=== PATIENT | female | born 1995 | race African-American/Black ===

== ENCOUNTER 2018-06-14 16:37 | Emergency (ER) | payer MEDICAID ==
[~2018-06-14] VITALS: Ht 180.3 cm; Wt 68.0 kg
[2018-06-14] MEDS ORDERED: NKM (16:44)
--- NOTE | 2018-06-14 16:48 | NUR ---
ED Nurse Note: Pt came into the Er w/ complaints of first digit of the left foot pain since last night and pinky finger of the right hand since one month ago. No redness or swelling noted. A + O x4. Ambulatory. Skin warm to touch. Rating the toe pain a 6/10 and the right pinky a 3/10. Non radiating.
[2018-06-14 16:55] VITALS: BP 100/55
--- NOTE | 2018-06-14 17:08 | NUR ---
ED Nurse Note: Urine has been collected and sent to lab. Awaiting results.
--- NOTE | 2018-06-14 17:34 | NUR ---
ED Nurse Note: Xray at the bedside.
[2018-06-14] MEDS ORDERED: ROBAXIN-750750 MG PO (17:49)
[2018-06-14] MEDS ORDERED: IBUPROFEN600 MG ORAL (17:59)
[2018-06-14 18:03] VITALS: BP 110/75
--- NOTE | 2018-06-14 18:04 | NUR ---
ED Nurse Note: Discharge instructions given to pt. Answered all questions. Verbalized understanding. No acute distress noted. ID band removed. Left ER w/ all belongings and w/ a steady gait.
--- NOTE | 2018-06-14 19:11 | Emergency Room Report ---
History of Present Illness General Chief Complaint: Pain Source: Patient (LUIS ALBERTO MARTINEZ) Present Illness HPI The patient is a 23-year-old female presenting for pain of her right hand and left foot. She states that a door closed onto her right hand approximately 1 month prior. She was not evaluated at that time. Pain has continued and is now a 5 out of 10 dull ache. Worse with touch and movement. Pain does not radiate. She also noticed pain of her left big toe which began 2 days prior. She states that she felt this as she was walking. She denies any injury. Pain is a 3 out of 10 dull ache and worse with walking. She denies previous gout. She denies any other symptoms (LUIS ALBERTO MARTINEZ) Allergies: Coded Allergies: No Known Allergies (Unverified , 06/14/18) Patient History Past Medical History: see triage record Pertinent Family History: none Last Menstrual Period: 2 WEEKS AGO Now: No Reviewed Nursing Documentation: PMH: Agreed; PSxH: Agreed (LUIS ALBERTO MARTINEZ) Nursing Documentation-PMH Past Medical History: No Stated History (LUIS ALBERTO MARTINEZ) Review of Systems All Other Systems: negative except mentioned in HPI (LUIS ALBERTO MARTINEZ) Physical Exam Vital Signs Date Time Temp Pulse Resp B/P (MAP) Pulse Ox O2 Delivery O2 Flow Rate FiO2 06/14/18 16:40 99.0 80 19 106/60 96 Room Air Sp02 EP Interpretation: reviewed, normal General Appearance: no apparent distress, alert, GCS 15, non-toxic Head: normocephalic, atraumatic Musculoskeletal: normal inspection, gait/station normal, normal range of motion , tender - TTP over the R 4th and 5th MC. TTP over the L 1st toe IPJ Neurologic: alert, oriented x3, responsive, motor strength/tone normal, sensory intact, speech normal Psychiatric: judgement/insight normal, memory normal, mood/affect normal, no suicidal/homicidal ideation Skin: normal color, no rash, warm/dry, well hydrated (LUIS ALBERTO MARTINEZ) Medical Decision Making PA Attestation Dr. Rosen is my supervising physician. Patient management was discussed with my supervising physician (TERZIAN,LUIS ALBERTO P.A.) Diagnostic Impression: Primary Impression: Contusion, hand Qualified Codes: S60.221A - Contusion of right hand, initial encounter Additional Impression: Sprain of great toe of left foot Qualified Codes: S93.502A - Unspecified sprain of left great toe, initial encounter ER Course The patient is a 23-year-old female presenting for pain of her right hand and left foot. Ddx considered include but not limited to sprain/strain, fracture, contusion, gout PE: Afebrile. NAD Right hand: No obvious deformity. No edema. Full active range of motion is intact. Sensation intact. There is tenderness to palpation over the fourth and fifth metacarpal. Left foot has tenderness to palpation over the first IP joint. No deformity. Full active range of motion intact. No edema. No erythema X-ray of the right hand and left foot are both unremarkable The patient will be treated with Motrin. Rice instructions given. ER precautions given Laboratory Tests Test 06/14/18 17:03 Urine HCG, Qualitative Negative (NEGATIVE) Lab Results Impression Neg preg (LUIS ALBERTO MARTINEZ P.A.) Other X-Ray Diagnostic Results Other X-Ray Diagnostic Results #1: X-Ray ordered: R hand # of Views/Limited Vs Complete: 3 View, Complete Indication: Pain EP Interpretation: Yes PA Xray: Interpretation reviewed, by supervising MD, and agrees with findings. Interpretation: no dislocation, no soft tissue swelling, no fractures Impression: No acute disease Electronically Signed by: Luis Alberto Martinez PA-C Other X-Ray Diagnostic Results #2: X-Ray ordered: L foot # of Views/Limited Vs Complete: 3 View, Complete Indication: Pain EP Interpretation: Yes PA Xray: Interpretation reviewed, by supervising MD, and agrees with findings. Interpretation: no dislocation, no soft tissue swelling, no fractures Impression: No acute disease Electronically Signed by: Luis Alberto Martinez PA-C (LUIS ALBERTO MARTINEZ P.A.) Other X-Ray Diagnostic Results #1: Electronically Signed by: P A documentation of Xray reviewed by me and is accurate, David Rosen MD Other X-Ray Diagnostic Results #2: Electronically Signed by: P A documentation of Xray reviewed by me and is accurate, David Rosen MD (David Rosen MD) Last Vital Signs Date Time Temp Pulse Resp B/P (MAP) Pulse Ox O2 Delivery O2 Flow Rate FiO2 06/14/18 18:03 97.5 90 20 110/75 98 Room Air Status: improved (LUIS ALBERTO MARTINEZ) Disposition: HOME, SELF-CARE Condition: Improved Scripts Ibuprofen* (MOTRIN*) 600 Mg Tablet 600 MG ORAL Q8H PRN for For Pain, #30 TAB 0 Refills Prov: LUIS ALBERTO MARTINEZ 06/14/18 Patient Instructions: MARICARMEN Silveira for Routine Care of Injuries Additional Instructions: I discussed my findings with the patient. All questions and concerns have been answered. Treatment and medication compliance have been addressed. I advised the patient that they need to follow up with PMD in 3-5 days. Return to ED if pain remains or worsens, numbness or tingling occurs, new rash is noticed, fever is noticed, or if needed for any reason. Patient verbalized understanding of discharge instructions. LUIS ALBERTO MARTINEZ Jun 14, 2018 19:11 David Rosen MD Jun 15, 2018 02:00
--- NOTE | 2018-06-15 12:19 | Diagnostic Imaging Report ---
Indication: Foot pain Technique: XRAY Foot Complete L Comparison: None Findings: Bone mineralization within normal limits. There is no evidence of acute fracture. Anatomic alignment and joint spaces are maintained. No evidence of ankle joint effusion. No radiopaque foreign body. Impression: No acute fracture or dislocation.
--- NOTE | 2018-06-15 12:20 | Diagnostic Imaging Report ---
Indication: Hand pain Technique: XRAY Hand Complete R Comparison: None Findings: Bony mineralization within normal limits. There is no evidence of acute fracture. Anatomic alignment and joint spaces are maintained. No radiopaque foreign body. Impression: No acute fracture or dislocation.
== END 2018-06-14 18:04 | disposition home or self-care (01) ==
LOC: EMR 17:01
DX: S60.221A Contusion of right hand, initial encounter (principal); S93.502A Unspecified sprain of left great toe, initial encounter; W23.0XXA Caught, crushed, jammed, or pinched between moving objects, initial encounter; Y92.89 Other specified places as the place of occurrence of the external cause
CPT/HCPCS: 81025; 99284

== ENCOUNTER 2018-07-06 06:07 | Emergency (ER) | payer MEDICAID ==
[~2018-07-06] VITALS: Ht 180.3 cm; Wt 68.0 kg
[~2018-07-06 06:07] MED LIST: IBUPROFEN600 MG ORAL; NKM; ROBAXIN-750750 MG PO
[2018-07-06 06:14] VITALS: BP 123/69
[2018-07-06] MEDS ORDERED: NKM (06:14)
--- NOTE | 2018-07-06 06:17 | NUR ---
ED Nurse Note: Patient walked into ED c/o of an abscess on right pelvic area that started 07/05/18
--- NOTE | 2018-07-06 06:29 | Emergency Room Report ---
History of Present Illness General Chief Complaint: Skin Rash/Abscess Source: Patient Present Illness HPI Patient is a 23-year-old female presented after increased rash to her right groin area. Patient was noted to have increased tenderness as well as some swelling. She denies any fever. She denies being . Patient states this is recurred multiple times during her periods. Patient reports of increased sharp pain. Allergies: Coded Allergies: No Known Allergies (Unverified , 06/14/18) Patient History Past Medical History: see triage record Last Menstrual Period: 07/05/18 Now: No : 0 Para: 0 Reviewed Nursing Documentation: PMH: Agreed; PSxH: Agreed Nursing Documentation-PMH Past Medical History: No Stated History Review of Systems All Other Systems: negative except mentioned in HPI Physical Exam Vital Signs Date Time Temp Pulse Resp B/P (MAP) Pulse Ox O2 Delivery O2 Flow Rate FiO2 07/06/18 06:11 97.9 115 18 123/69 96 Room Air Sp02 EP Interpretation: reviewed, normal General Appearance: normal inspection, well appearing, no apparent distress, alert, GCS 15, non-toxic Head: atraumatic ENT: normal ENT inspection, hearing grossly normal, normal voice Neck: normal inspection, full range of motion, supple, no bony tend Respiratory: normal inspection, lungs clear, normal breath sounds, no respiratory distress, no retraction, no wheezing Cardiovascular #1: regular rate, rhythm, no edema Gastrointestinal: normal inspection, normal bowel sounds, non tender, soft, no guarding, no hernia Genitourinary: no CVA tenderness, other - right inguinal lymphadenopathy Musculoskeletal: normal inspection, back normal, normal range of motion Neurologic: normal inspection, alert, oriented x3, responsive, 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 Differential diagnosis include was not limited to necrotizing fasciitis, abscess, hidradenitis suppurativa, bubo, among others. Patient has a benign exam and does not appear to require any further imaging or laboratory testing at this time. Patient is noted to have some tenderness inguinal lymphadenopathy. There is no evident abscess noted. Patient was given intramuscular Rocephin as well as prescription for oral antibiotics. She was advised to have outpatient testing for sexually transmitted infections as well as Pap smear. Patient advised to return if worse. She was given a note for work. Labs Test 07/06/18 03:39 Urine HCG, Qualitative Negative (NEGATIVE) Last Vital Signs Date Time Temp Pulse Resp B/P (MAP) Pulse Ox O2 Delivery O2 Flow Rate FiO2 07/06/18 06:14 97.9 74 18 123/69 96 Room Air Status: improved Condition: Stable Scripts Ibuprofen* (MOTRIN*) 600 Mg Tablet 600 MG ORAL Q8H PRN for For Pain, #30 TAB 0 Refills Prov: Miguel Graves MD 07/06/18 Doxycycline Monohydrate* (DOXYCYCLINE MONOHYDRATE*) 100 Mg Capsule 100 MG ORAL Q12H, #14 CAP 0 Refills Prov: Miguel Graves MD 07/06/18 Miguel Graves MD Jul 06, 2018 06:29
[2018-07-06] MEDS ORDERED: DOXYCYCLINE MO100 MG ORAL (06:34)
[2018-07-06] MEDS ORDERED: IBUPROFEN600 MG ORAL (06:34)
[2018-07-06] MEDS ORDERED: Lidocaine 1% MPF 10mg/ml 5ml INJ ONE (06:45)
[2018-07-06 06:52] VITALS: BP 120/71
[2018-07-06 07:05] VITALS: BP 120/71
--- NOTE | 2018-07-06 07:06 | NUR ---
ED Nurse Note: PT is Dc per ERMD order. pt is stable for DC. pt is alert and oriented times 4. pt left with all DC notes and prescriptions and belongings. pt is able to teach back DC notes. pt is instructed to follow up with primary MD as soon as possible. pt vital signs is stable. pt status, condition and vital signs reported to ERMD prior to DC. pt ID band removed.
== END 2018-07-06 07:09 | disposition home or self-care (01) ==
LOC: EMR 06:28
DX: R59.0 Localized enlarged lymph nodes (principal)
CPT/HCPCS: 81025; 96372; 96374; 99284; J0696

== ENCOUNTER 2018-08-15 14:12 | Emergency (ER) | payer MEDICAID ==
[~2018-08-15] VITALS: Ht 177.8 cm; Wt 68.0 kg
[~2018-08-15 14:12] MED LIST changes: +DOXYCYCLINE MO100 MG ORAL
[2018-08-15 14:32] VITALS: BP 109/65
--- NOTE | 2018-08-15 14:34 | NUR ---
ED Nurse Note: patient walked in by her self from home, complaining of smal lesion inside of her left chick. per patient she is so worry about it. AAO x4, VSS at this time, skin is dry, intact, warm to touch.
[2018-08-15 15:01] VITALS: BP 135/65
--- NOTE | 2018-08-15 15:02 | NUR ---
ER DISCHARGE NOTE: Patient is cleared to be discharged per ERMD, pt is aox4, on room air, with stable vital signs. pt was given dc and prescription instructions, pt was able to verbalize understanding, pt id band removed. pt is able to ambulate with steady gait. pt took all belongings.
--- NOTE | 2018-08-15 20:26 | Emergency Room Report ---
History of Present Illness General Chief Complaint: General Complaint Source: Patient Present Illness HPI Patient is a 23-year-old female presenting for a lesion she noticed in her mouth 3 days prior. She states that she noticed a dark region towards the back of her mouth. She denies any symptoms including pain, bleeding, fever, chills, weight loss, night sweats, dysphagia, odynophagia Pt denies tobacco Hx Allergies: Coded Allergies: No Known Allergies (Unverified , 06/14/18) Patient History Past Medical History: see triage record Pertinent Family History: none Last Menstrual Period: 07/25/2018 Now: No : 0 Para: 0 Reviewed Nursing Documentation: PMH: Agreed; PSxH: Agreed Nursing Documentation-PMH Past Medical History: No Stated History Review of Systems All Other Systems: negative except mentioned in HPI Physical Exam Vital Signs Date Time Temp Pulse Resp B/P (MAP) Pulse Ox O2 Delivery O2 Flow Rate FiO2 08/15/18 14:20 98.4 95 18 109/65 100 Room Air Sp02 EP Interpretation: reviewed, normal General Appearance: no apparent distress, alert, GCS 15, non-toxic Head: normocephalic, atraumatic ENT: hearing grossly normal, normal pharynx, no angioedema, normal voice, uvula midline, moist mucus membranes, other - Posterior to L molars on buccal mucosa is a 1.5cm in diameter hyperpigmented macular lesion Neck: full range of motion, supple/symm/no masses Musculoskeletal: back normal, gait/station normal, normal range of motion, non- tender Neurologic: alert, oriented x3, responsive, motor strength/tone normal, sensory intact, speech normal Psychiatric: judgement/insight normal, memory normal, mood/affect normal, no suicidal/homicidal ideation Skin: normal color, no rash, warm/dry, well hydrated Lymphatic: no adenopathy Medical Decision Making PA Attestation Dr. Crow is my supervising physician. Patient management was discussed with my supervising physician Diagnostic Impression: Primary Impression: Oral mucosal lesion ER Course Patient is a 23-year-old female presenting for a lesion she noticed in her mouth 3 days prior. Differential diagnosis considered but not limited to: Malignancy, dental infection, among others PE: Afebrile. NAD Posterior to L molars on buccal mucosa is a 1.5cm in diameter hyperpigmented macular lesion. Non tender. Irregular in shape. No bleeding. No edema. The patient was told she needs to follow-up with ENT and/or primary doctor as soon as possible as this could be malignancy. She is given follow-up information. She understands. ER precautions given Last Vital Signs Date Time Temp Pulse Resp B/P (MAP) Pulse Ox O2 Delivery O2 Flow Rate FiO2 08/15/18 15:01 98.2 74 16 135/65 100 Room Air Status: improved Disposition: HOME, SELF-CARE Condition: Improved Referrals: NON PHYSICIAN (PCP) Karlos Alvarado MD [facility](age 2-12) - Orthodontic Clinic - Hours: Fri,Fri,, 8:15am and 1pm (new patient screening), Tu. 1pm. Emergency clinic Friday - Friday 8:30am and 1pm, Tues. 1pm. *Call to check if clinic is open; No appointment necessary for the first visit ( new patient screening), Arrive 15-30 minutes early as it is first come, first serve. Additional Instructions: Please follow up with ENT and Dentistry as soon as possible for further evaluation and treatment. It is possible that the oral lesion is a type of cancer but needs further testing. Information has been provided for an ENT doctor and dentist. DEMARIO MARTINEZ Aug 15, 2018 20:26
== END 2018-08-15 15:01 | disposition home or self-care (01) ==
LOC: EMR 14:35
DX: K13.70 Unspecified lesions of oral mucosa (principal)
CPT/HCPCS: 99281

== ENCOUNTER 2018-10-27 13:07 | Emergency (ER) | payer MEDICAID ==
[~2018-10-27] VITALS: Ht 180.3 cm; Wt 72.6 kg
[2018-10-27 13:11] VITALS: BP 117/69
--- NOTE | 2018-10-27 13:23 | Emergency Room Report ---
History of Present Illness General Chief Complaint: Upper Respiratory Illness Source: Patient Present Illness HPI 23-year-old female with no significant past medical history here complaining of 1 day of sore throat and body ache. Patient reports that her was diagnosed with tonsillitis and given antibiotics. Patient is rating the pain 3 out of 10 with swallowing, and edema and her neck, denying cough and congestion. Patient has been taking ibuprofen for pain with minimal relief. Denies abdominal pain, nausea vomiting, shortness of breath, wheezing, chest pain palpitation. Denies recent travel. Allergies: Coded Allergies: No Known Allergies (Unverified , 06/14/18) Patient History Past Medical History: see triage record Past Surgical History: unable to obtain Pertinent Family History: none Last Menstrual Period: 10/24/18 Now: No Immunizations: UTD Reviewed Nursing Documentation: PMH: Agreed; PSxH: Agreed Nursing Documentation-PMH Past Medical History: No Stated History Review of Systems All Other Systems: negative except mentioned in HPI Physical Exam Vital Signs Date Time Temp Pulse Resp B/P (MAP) Pulse Ox O2 Delivery O2 Flow Rate FiO2 10/27/18 13:10 99.0 78 18 115/66 (82) 99 Room Air Sp02 EP Interpretation: reviewed, normal General Appearance: normal inspection, well appearing Head: normocephalic, atraumatic Eyes: bilateral eye normal inspection, bilateral eye PERRL ENT: no angioedema, TMs + canals normal, uvula midline, moist mucus membranes, pharyngeal erythema Neck: full range of motion, supple, other - Anterior cervical Respiratory: normal inspection, chest non-tender, lungs clear, normal breath sounds, no respiratory distress, no wheezing Cardiovascular #1: normal inspection, normal peripheral pulses, regular rate, rhythm, no murmur, normal capillary refill Gastrointestinal: normal inspection, soft Genitourinary: no CVA tenderness Musculoskeletal: normal inspection, back normal Neurologic: normal inspection, alert, oriented x3 Psychiatric: normal inspection, judgement/insight normal Skin: normal inspection, normal color, no rash, warm/dry Lymphatic: adenopathy - Anterior cervical Medical Decision Making PA Attestation All my diagnosis and treatment plans were reviewed ad discussed with my supervising physician Dr. Fernandez Diagnostic Impression: Primary Impression: Acute tonsillitis ER Course 23-year-old female with no significant past medical history here complaining of 1 day of sore throat and body ache. Patient reports that her was diagnosed with tonsillitis and given antibiotics. Patient is rating the pain 3 out of 10 with swallowing, and edema and her neck, denying cough and congestion. Patient has been taking ibuprofen for pain with minimal relief. Denies abdominal pain, nausea vomiting, shortness of breath, wheezing, chest pain palpitation. Denies recent travel. Ddx considered but are not limited to: strep pharyngitis, URI, tonsilitis, peritonsillar absacess, influneza Vital signs: are WNL, pt. is afebrile H&PE are most consistent with: tonsillitis most likely bacterial due to exposure ORDERS: amOxacillin, ibuprofen ED INTERVENTIONS: None required at this time. DISCHARGE: At this time pt. is stable for d/c to home. Will provide printed patient care instructions, and any necessary prescriptions. Care plan and follow up instructions have been discussed with the patient prior to discharge. follow up with a primary care provider if symptoms continue for more assessment and possible referral to ENT Last Vital Signs Date Time Temp Pulse Resp B/P (MAP) Pulse Ox O2 Delivery O2 Flow Rate FiO2 10/27/18 13:10 99.0 78 18 115/66 (82) 99 Room Air Disposition: HOME, SELF-CARE Condition: Stable Scripts Ibuprofen* (MOTRIN*) 600 Mg Tablet 600 MG ORAL Q12HR PRN for For Pain, #15 TAB 0 Refills Prov: Tyler Young 10/27/18 Amoxicillin* (AMOXIL*) 500 Mg Capsule 500 MG ORAL EVERY 12 HOURS for 10 Days, #20 CAP Prov: Tyler Young 10/27/18 Patient Instructions: Tonsillitis, [id number] Additional Instructions: See primary care provider for follow-up if continues to be symptomatic Tyler Young Oct 27, 2018 13:23
[2018-10-27] MEDS ORDERED: AMOXICILLIN500 MG ORAL (13:24)
[2018-10-27] MEDS ORDERED: IBUPROFEN600 MG ORAL (13:25)
[2018-10-27 13:26] VITALS: BP 117/69
== END 2018-10-27 13:26 | disposition home or self-care (01) ==
LOC: EMR 13:23
DX: J03.90 Acute tonsillitis, unspecified (principal)
CPT/HCPCS: 99282

== ENCOUNTER 2019-03-11 18:57 | Emergency (ER) | payer MEDICAID ==
[~2019-03-11] VITALS: Ht 180.3 cm; Wt 70.3 kg
[~2019-03-11 18:57] MED LIST changes: +AMOXICILLIN500 MG ORAL
--- NOTE | 2019-03-11 19:39 | NUR ---
ED Nurse Note: PAtient presents as a walk-in with complaints of lower right back pain x 1 day and diarrhea x 3-4 days. Patient has pain on 8/10 scale and is awaiting urge to provide urine sample. will continue to monitor.
[2019-03-11 19:40] VITALS: BP 105/60
[2019-03-11 20:33] LABS: APPEARANCE,URINE CLEAR; BILIRUBIN, URINE NEGATIVE (NEGATIVE); COLOR,URINE PALE YELLOW; GLUCOSE, URINE (UA) NEGATIVE (NEGATIVE); KETONES,URINE NEGATIVE (NEGATIVE); LEUKOCYTE ESTERASE ,URINE 1+ (NEGATIVE); NITRITE,URINE NEGATIVE (NEGATIVE); PH,URINE 8 (4.5-8.0); PROTEIN,URINE 1+ (NEGATIVE); UROBILINOGEN,URINE NORMAL MG/DL (0.0-1.0)
--- NOTE | 2019-03-11 20:49 | Emergency Room Report ---
History of Present Illness General Chief Complaint: Lower Back Pain or Injury Source: Patient Present Illness HPI 24-year-old female with no significant past history is complaining of 2 days of right-sided low back pain pointing at the mid to right lateral however denies pain radiation to the suprapubic area. Denies urinary frequency, hematuria, painful urination. Denies fever and chills, fall or injury, lifting heavy objects. Reports that it started after she was sitting for several hours. Has full range of motion, denying saddle paresthesia, tingling numbness, urinary or bowel incontinence. Has not taken medication for symptom relief. Patient is not sexually active and reports that her last menstrual period was 3 weeks ago and regular. Allergies: Coded Allergies: No Known Allergies (Unverified , 06/14/18) Patient History Past Medical History: see triage record Past Surgical History: none Pertinent Family History: none Last Menstrual Period: 02/24/19 Now: No Immunizations: UTD Reviewed Nursing Documentation: PMH: Agreed; PSxH: Agreed Nursing Documentation-PMH Past Medical History: No Stated History Review of Systems All Other Systems: negative except mentioned in HPI Physical Exam Vital Signs Date Time Temp Pulse Resp B/P (MAP) Pulse Ox O2 Delivery O2 Flow Rate FiO2 03/11/19 19:15 98.4 97 22 105/60 (75) 98 Room Air Sp02 EP Interpretation: reviewed, normal General Appearance: no apparent distress, alert, GCS 15, non-toxic Head: normocephalic, atraumatic Eyes: bilateral eye normal inspection, bilateral eye PERRL ENT: hearing grossly normal, normal pharynx, no angioedema, normal voice Neck: full range of motion, supple/symm/no masses Respiratory: chest non-tender, lungs clear, normal breath sounds, no wheezing, speaking full sentences Cardiovascular #1: regular rate, rhythm, no edema, no murmur Gastrointestinal: normal bowel sounds, non tender, soft, no mass Genitourinary: normal inspection, no CVA tenderness Musculoskeletal: normal inspection, back normal, digits/nails normal, gait/ station normal, non-tender, pelvis stable Neurologic: normal inspection, alert, oriented x3, responsive Psychiatric: normal inspection, judgement/insight normal Skin: no rash Lymphatic: normal inspection Medical Decision Making PA Attestation All my diagnosis and treatment plans were reviewed ad discussed with my supervising physician Dr. Fernandez Diagnostic Impression: Primary Impression: UTI (urinary tract infection) Additional Impression: Lumbar spine strain ER Course 24-year-old female with no significant past history is complaining of 2 days of right-sided low back pain pointing at the mid to right lateral however denies pain radiation to the suprapubic area. Denies urinary frequency, hematuria, painful urination. Denies fever and chills, fall or injury, lifting heavy objects. Reports that it started after she was sitting for several hours. Has full range of motion, denying saddle paresthesia, tingling numbness, urinary or bowel incontinence. Has not taken medication for symptom relief. Patient is not sexually active and reports that her last menstrual period was 3 weeks ago and regular. Ddx considered but are not limited to: UTI, pyelonephritis, lumbar spine versus strain versus contusion Vital signs: are WNL, pt. is afebrile H&PE are most consistent with: UTI, lumbar spine strain ORDERS: UA, No lumbar x-ray needed as there was no fall or injury, Macrobid, Robaxin, lidocaine patch ED INTERVENTIONS: None required at this time. DISCHARGE: At this time pt. is stable for d/c to home. Will provide printed patient care instructions, and any necessary prescriptions. Care plan and follow up instructions have been discussed with the patient prior to discharge. Advised patient follow-up with her primary care provider if fever chills, flank pain, nausea vomiting return to emergency room at this time patient CVA tenderness and does not elicit pyelonephritis symptoms advised her to start as soon as possible for UTI symptoms. Last Vital Signs Date Time Temp Pulse Resp B/P (MAP) Pulse Ox O2 Delivery O2 Flow Rate FiO2 03/11/19 19:40 98.4 76 22 105/60 98 Room Air Disposition: HOME, SELF-CARE Condition: Stable Scripts Nitrofurantoin Monohyd/M-Cryst* (MACROBID 100 MG*) 100 Mg Capsule 100 MG ORAL EVERY 12 HOURS for 7 Days, #14 CAP Prov: Tyler Young 03/11/19 Lidocaine Patch* (Lidoderm Patch*) 1 Each Adh..patch 1 PATCH TOPIC DAILY, #7 PATCH 0 Refills Patch(es) may remain in place for up to 12 hours in any 24-hour period. Prov: Tyler Young 03/11/19 Methocarbamol* (ROBAXIN-500*) 500 Mg Tablet 500 MG ORAL TID PRN for For Pain, #15 TAB 0 Refills Prov: Tyler Young 03/11/19 Patient Instructions: Lumbosacral Strain, Urinary Tract Infection, [id number] Additional Instructions: Take medication as directed follow-up with your primary care provider if worsening symptoms return to the emergency room Tyler Yougn Mar 11, 2019 20:49
[2019-03-11] MEDS ORDERED: LIDODERM700 M1 TOPIC (20:51)
[2019-03-11] MEDS ORDERED: NITROFURANTOIN100 M2 ORAL (20:51)
[2019-03-11] MEDS ORDERED: ROBAXIN-500MG ORAL (20:51)
--- NOTE | 2019-03-11 20:59 | NUR ---
ED Nurse Note: patient cleared for discharge by ER provider, patient verbalized understanding of discharge instructions, ID band removed, patient departed with all belongings.
[2019-03-11 21:01] VITALS: BP 105/60
== END 2019-03-11 21:01 | disposition home or self-care (01) ==
LOC: EMR 21:00
DX: S39.012A Strain of muscle, fascia and tendon of lower back, initial encounter (principal); N39.0 Urinary tract infection, site not specified; X58.XXXA Exposure to other specified factors, initial encounter; Y92.9 Unspecified place or not applicable
CPT/HCPCS: 81001; 81025; 87086; 87181; Z7502; 99283

== ENCOUNTER 2019-07-23 21:29 | Emergency (ER) | payer MEDICAID ==
[~2019-07-23] VITALS: Ht 180.3 cm; Wt 68.0 kg
[~2019-07-23 21:29] MED LIST changes: +LIDODERM700 M1 TOPIC; +NITROFURANTOIN100 M2 ORAL; +ROBAXIN-500MG ORAL
--- NOTE | 2019-07-23 22:10 | NUR ---
ED Nurse Note: Patient walked in to ER c/o lower back pain x 2-3 days. AAO x4, VSS at this time.
[2019-07-23 22:15] VITALS: BP 135/119
[2019-07-23] MEDS ORDERED: Methocarbamol 750mg tab ORAL ONE (22:15)
[2019-07-23] MEDS ORDERED: Acetaminophen 500mg (ES) tab ORAL ONE (22:15)
[2019-07-23 22:16] LABS: APPEARANCE,URINE SLIGHTLY CLOUDY; BILIRUBIN, URINE NEGATIVE (NEGATIVE); COLOR,URINE PALE YELLOW; GLUCOSE, URINE (UA) NEGATIVE (NEGATIVE); KETONES,URINE NEGATIVE (NEGATIVE); LEUKOCYTE ESTERASE ,URINE 2+ (NEGATIVE); NITRITE,URINE POSITIVE (NEGATIVE); PH,URINE 7 (4.5-8.0); PROTEIN,URINE 2+ (NEGATIVE); UROBILINOGEN,URINE NORMAL MG/DL (0.0-1.0)
[2019-07-23] MEDS ORDERED: ONDANSETRON ODT4 MG BC (23:09)
[2019-07-23] MEDS ORDERED: CEPHALEXIN500 MG ORAL (23:09)
[2019-07-23] MEDS ORDERED: TYLENOL EXTRA500 MG ORAL (23:09)
[2019-07-23] MEDS ORDERED: Cephalexin 500mg cap ORAL ONE (23:15)
[2019-07-23 23:20] VITALS: BP 135/119
--- NOTE | 2019-07-23 23:20 | NUR ---
ED Nurse Note: Pt cleared by health care Provider for discharge. DC instructions/prescription was given and explained to pt and verbalized understanding of teachings. All medical deviecs such as ID band removed. Pt is AAO x4, ambulatory and left with all personal belongings.
--- NOTE | 2019-07-24 00:18 | Emergency Room Report ---
History of Present Illness General Chief Complaint: Back Pain-No Injury Source: Patient Present Illness HPI 24-year-old female presents to ED complaining of back pain x1 day. Sudden onset. Denies any fall or injury. States pain is localized to the left flank, radiating towards the front. Dull, 8 out of 10. Denies nausea or vomiting. Denies fevers or chills. Denies diarrhea. Denies dysuria or hematuria. No other aggravating relieving factors. Denies any other associated symptoms Allergies: Coded Allergies: No Known Allergies (Unverified , 06/14/18) Patient History Past Medical History: none Past Surgical History: none Pertinent Family History: none Social History: Denies: smoking, alcohol use, drug use Last Menstrual Period: 07/10/19 Now: No Immunizations: UTD Reviewed Nursing Documentation: PMH: Agreed; PSxH: Agreed Nursing Documentation-PMH Past Medical History: No Stated History Review of Systems All Other Systems: negative except mentioned in HPI Physical Exam Vital Signs Date Time Temp Pulse Resp B/P (MAP) Pulse Ox O2 Delivery O2 Flow Rate FiO2 07/23/19 21:53 98.6 78 16 135/119 (124) 94 Room Air Sp02 EP Interpretation: reviewed, normal General Appearance: no apparent distress, alert, GCS 15, non-toxic Head: normocephalic, atraumatic Eyes: bilateral eye normal inspection, bilateral eye PERRL ENT: hearing grossly normal, normal pharynx, no angioedema, normal voice Neck: full range of motion, supple/symm/no masses Respiratory: chest non-tender, lungs clear, normal breath sounds, speaking full sentences Cardiovascular #1: regular rate, rhythm, no edema Cardiovascular #2: 2+ carotid (R), 2+ carotid (L), 2+ radial (R), 2+ radial (L) , 2+ dorsalis pedis (R), 2+ dorsalis pedis (L) Gastrointestinal: normal bowel sounds, non tender, soft, non-distended, no guarding, no rebound Rectal: deferred Genitourinary: normal inspection, no CVA tenderness, CVA tenderness (L) Musculoskeletal: back normal, normal range of motion, gait/station normal, non- tender Neurologic: alert, motor strength/tone normal, oriented x3, sensory intact, responsive, speech normal Psychiatric: judgement/insight normal, memory normal, mood/affect normal, no suicidal/homicidal ideation Reflexes: 3+ bicep (R), 3+ bicep (L), 3+ tricep (R), 3+ tricep (L), 3+ knee (R) , 3+ knee (L) Skin: no rash Lymphatic: no adenopathy Medical Decision Making Diagnostic Impression: Primary Impression: UTI (urinary tract infection) Qualified Codes: N10 - Acute pyelonephritis ER Course Hospital Course 24 yo F presents with L flank pain Differential diagnoses include: muscle strain, cystitis, pyelonephritis Clinical course Patient placed on stretcher. After initial history and physical I ordered UA, urine , pain meds. UA positive bacteria. Clinically concerning for pyelonephritis. Patient afebrile, nontoxic-appearing. Stable vitals. Resting comfortably. I discussed findings with patient. Will discharge home with antibiotics. Given antibiotics in ED. Safe for discharge for close outpatient follow-up. States she has a PMD Diagnosis - UTI Stable and discharged home with prescriptions for Rx Keflex, zofran, tylenol. Instructed to followup with PMD. Return to ED if symptoms recur or worsen Labs Test 07/23/19 22:08 Urine Color Pale yellow Urine Appearance Slightly cloudy Urine pH 7 (4.5-8.0) Urine Specific [place] 1.010 (1.005-1.035) Urine Protein 2+ (NEGATIVE) Urine Glucose (UA) Negative (NEGATIVE) Urine Ketones Negative (NEGATIVE) Urine Blood 2+ (NEGATIVE) Urine Nitrite Positive (NEGATIVE) Urine Bilirubin Negative (NEGATIVE) Urine Urobilinogen Normal MG/DL (0.0-1.0) Urine Leukocyte Esterase 2+ (NEGATIVE) Urine RBC 10-15 /HPF (0 - 2) Urine WBC 5-10 /HPF (0 - 2) Urine Squamous Epithelial Cells Few /LPF (NONE/OCC) Urine Bacteria Moderate /HPF (NONE) Urine HCG, Qualitative Negative (NEGATIVE) Last Vital Signs Date Time Temp Pulse Resp B/P (MAP) Pulse Ox O2 Delivery O2 Flow Rate FiO2 07/23/19 23:20 98.6 16 135/119 94 Room Air 07/23/19 21:53 78 Status: improved Disposition: HOME, SELF-CARE Condition: Stable Scripts Acetaminophen* (TYLENOL EXTRA STRENGTH*) 500 Mg Tablet 500 MG ORAL Q8H PRN for Prn Headache/Temp > 101, #30 TAB 0 Refills Prov: Cesar Crow MD 07/23/19 Ondansetron Odt* (ZOFRAN ODT*) 4 Mg Tab.rapdis 4 MG BC EVERY 8 HOURS, #10 TAB 0 Refills Prov: Cesar Crow MD 07/23/19 Cephalexin* (KEFLEX*) 500 Mg Capsule 500 MG ORAL EVERY 6 HOURS for 7 Days, #28 CAP Prov: Cesar Crow MD 07/23/19 Referrals: NON PHYSICIAN (PCP) Patient Instructions: Pyelonephritis, Adult Cesar Crow MD Jul 24, 2019 00:18
== END 2019-07-23 23:20 | disposition home or self-care (01) ==
LOC: EMR 22:29
DX: N10 Acute pyelonephritis (principal)
CPT/HCPCS: 81003; 81025; 87086; 87181; Z7502; 99283